=== PATIENT | female | born 1950 | race Caucasian/White ===

== ENCOUNTER 2019-11-04 12:02 | Inpatient (IN) | payer OTHER, SELFPAY ==
[2019-10-23 14:45] VITALS: BMI 23.6
[2019-11-04] VITALS (15 sets, daily range): BP systolic 106–144; BP diastolic 50–73; PULSE 64–80; RESP 10–19; TEMP 36.3–37.2; O2SAT 93–99; BMI 23.6
--- NOTE | 2019-11-04 | DI.RAD.S_ITS ---
PROCEDURE: XR CERVICAL SPINE 2V OR 3V INDICATIONS: C4-5. C5-6, C6-7 ACDF TECHNIQUE: 2 view(s) of the cervical spine were acquired. COMPARISON: None. FINDINGS: 2 intraoperative fluoroscopy images demonstrate discectomy and anterior fusion at C4-C5, C5-C6 and C6-C7. IMPRESSION: Discectomy and anterior fusion at C4-C5, C5-C6 and C6-C7. Dictated by: Abril Lemons M.D. on 11/04/2019 at 17:03 Approved by: Abril Lemons M.D. on 11/04/2019 at 17:04
[2019-11-04] MEDS: ALBUTEROL 2.5 MG/3 ML NEB (ADULT) INH (12:55)
[2019-11-04] MEDS: LACTATED RINGERS 1,000 ML 42 ML IV ×2 (13:20→15:53)
--- NOTE | 2019-11-04 13:33 | PM.PREOP ---
Pre-operative Note Interval Note History & Physical reviewed/Exam performed by Physician: Yes Changes to H&P: No
[2019-11-04 13:46] LABS: INR 1.2 (0.9-1.3)
[2019-11-04] MEDS: CEFAZOLIN 2 GM/100 ML FROZ.PIGGY IV (14:05)
--- NOTE | 2019-11-04 14:36 | SUR.OPER ---
Supine on padded OR bed, head on gel donut, towel roll between shoulders vertically. Arms padded and papoosed with draw sheet, and secured with towel clips, legs uncrossed, pillow under knee, safety belt at thighs, tape over blanket over lower legs. Pt. taped from bilateral shoulders down to foot of bed.
[2019-11-04] MEDS: ACETAMINOPHEN IV 1,000 MG/100 ML VIAL 400 MG IV (15:20)
[2019-11-04] MEDS: BUPIVACAINE 0.25% W/ EPI (PF) 10 ML VIAL 20 ML INJ (16:43)
--- NOTE | 2019-11-04 16:56 | PM.OP.1 ---
Procedure & Clinicians Procedure: 1. C4-5 C5-6 C6-7 anterior cervical diskectomy and fusion 2. C4-5 C5-6 C6-7 anterior interbody cage placement 3. C4-5 C5-6 C6-7 anterior instrumentation with plate and screw placement in C4-C5-C6 and C7 vertebrae 4. Utilization of microsurgical technique and operating microscope Same procedure as scheduled: Yes Indications: Patient has been having chronic neck pain and worsening cervical radiculopathy. Patient failed multiple conservative management with worsening pain weakness and numbness in her upper extremity. Patient has been having difficulty performing activity of daily living. After discussing risks benefits of treatment options, patient elected proceed with surgery. Surgeon: Manda Herrera Quality Assurance Monitor Final: Clark Clark Click Yes if Unassisted: No Anesthesia Type: General Operative Notes Closure Type: primary Specimen(s): none sent Prosthetic devices, grafts, tissues, transplants, or devices: Globus extend plate, PEEK cages Applied: catheter Estimated Blood Loss (mL): 50 Blood products transfused: none Procedure in detail: Patient was seen in the preoperative area. Risks and benefits of the surgery was discussed with the patient. Operative consent was obtained and placed in the chart. Patient was then taken to the operative room. Prophylactic antibiotic was given less than 0.5 hr prior to skin incision. General anesthesia was administered. Patient was placed into a supine position on her radiolucent table. Bilateral shoulders were taped down to allow proper C-arm imaging. Anterior cervical area was prepped and draped in a sterile fashion. Time-out was performed at this time. Using lateral C-arm imaging, the level between C4 and C7 was identified and marked on patient's neck. A oblique incision from midline towards medial border of sternocleidomastoid muscle was made. The platysma muscle was incised in line with skin incision. Metzenbaum scissor was used to develop the plane between the medial border of sternocleidomastoid d and the strap muscles medially. The carotid sheath and its contents were identified and protected behind the hand-held retractor during the entire case. The plane between the carotid sheath and strap muscles was developed with Metzenbaum scissors. Dissection was made down to the level of the anterior cervical fascia. Longus colli muscle was incised on the anterior aspect of vertebral bodies bilaterally from C4-C7. Spinal needle was placed into the C4-5 disc space and confirmed with lateral C-arm imaging. Using microsurgical technique and operative microscope, anterior cervical diskectomy was performed at C4-5 C5-6 and C6-7 level. This was done by removing the disc material, removing the anterior and posterior osteophytes posterior longitudinal ligaments along with performing bilateral foraminotomies at all 3 levels. Patient was found to have severe central and foraminal stenosis at all 3 levels. Patient's stenosis was fully decompressed after decompression was completed. After the diskectomy was completed, 3 anterior interbody cages were obtained. The cages were packed with globus via cell bone grafting material. One cage each along with the bone grafting material was then packed into the interbody spaces from C4-C7 with one cage into each interbody level. After the cages were placed, the anterior cervical plate was stabilized to the C4-C7 vertebrae using 2 screws at each each level. Total 8 screws were placed. After confirming placement of the hardware with AP and lateral C-arm imaging, the screws were locked into the plate using the locking mechanism and torque limiting screwdriver. After the hardware was placed and confirmed with AP and lateral C-arm imaging, the wound was irrigated with sterile normal saline. The platysma muscle and the subcutaneous tissue was closed with 2-0 Vicryl. The skin was closed with 4-0 Monocryl and Steri-Strips. Patient tolerated the procedure well. Patient was transferred recovery room in stable condition. There were no complications. Complications: none Post-operative Condition: stable Disposition: PACU Plan for aftercare: Admit to inpatient hospital
--- NOTE | 2019-11-04 17:14 | SUR.PHASEI ---
upper denture returned to patient in PACU/.
[2019-11-04] MEDS: LORazepam 0.5 MG TABLET PO (18:44)
[2019-11-04] MEDS: NICOTINE 14 PATCH 14 MG TOP (19:42)
[2019-11-04] MEDS: SODIUM CHLORIDE 0.9% 1,000 ML 100 ML IV (19:42)
--- NOTE | 2019-11-04 21:10 | PC.NURSE ---
Patient currently resting in bed with eyes closed. Patient brought up from PACU on 2L O2, titrated off O2, maintained O2 at 96%. Patient denies shortness of breath, chest pain, dizziness, numbness or tingling in the extremities. Pulses are equal but irregular. Patient placed on tele at 1999. Upon Patient wants to stretch stating I'll start stretching my neck if I don't get something to relax me. Administered PRN Lorazepam.
[2019-11-04] MEDS: ATORVASTATIN 20 MG TABLET 40 MG PO (21:18)
[2019-11-04] MEDS: FLUTICASONE 110MCG HFA 120 PUFF INH (21:18)
[2019-11-04] MEDS: ROPINIROLE 1 MG TABLET PO (21:18)
[2019-11-04] MEDS: OXYCODONE IR 5 MG TABLET PO (21:24)
[2019-11-05 00:10] VITALS: BP 107/63; PULSE 65; RESP 18; TEMP 36.4; O2SAT 96
[2019-11-05] MEDS: OXYCODONE IR 5 MG TABLET PO ×4 (01:57→11:17)
[2019-11-05 04:40] VITALS: BP 121/56; PULSE 78; RESP 18; TEMP 36.9; O2SAT 96
[2019-11-05 08:00] VITALS: BP 127/62; PULSE 72; RESP 20; TEMP 37.1; O2SAT 98
--- NOTE | 2019-11-05 08:21 | P.DS_ITS ---
History of Present Illness History of Present Illness Date Patient Seen: 11/05/19 Time Patient Seen: 08:21 Chief complaint: [id number] Narrative: Pain mild. Denies fever or chills. No difficulty swallowing. Had pudding and crackers last night. is home to assist her. Discharge Providers Provider Date of admission: 11/04/19 12:02 Discharge Date: 11/05/19 Primary care physician: Etelvina Pinedo MD Consults: 11/04/19 15:10 Consult to Respiratory Therapy Evaluate & Treat Comment: FRANCISCO J, not CPAP compliant, post ACDF Physician Instructions: Evaluate and treat 11/04/19 19:27 Consult to Physical Therapy Evaluate & Treat Comment: Physician Instructions: Evaluate and Treat Discharge provider: Apolinar Chavarria PA-C Summary Hospital Course Discharge Diagnosis: cervical radiculopathy. Hospital Course: Procedure: 1. C4-5 C5-6 C6-7 anterior cervical diskectomy and fusion 2. C4-5 C5-6 C6-7 anterior interbody cage placement 3. C4-5 C5-6 C6-7 anterior instrumentation with plate and screw placement in C4-C5-C6 and C7 vertebrae 4. Utilization of microsurgical technique and operating microscope Same procedure as scheduled: Yes Indications: Patient has been having chronic neck pain and worsening cervical radiculopathy. Patient failed multiple conservative management with worsening pain weakness and numbness in her upper extremity. Patient has been having difficulty performing activity of daily living. After discussing risks benefits of treatment options, patient elected proceed with surgery. Surgeon: Manda Herrera Broth Mixer: Clark Clark Click Yes if Unassisted: No Anesthesia Type: General Operative Notes Closure Type: primary Specimen(s): none sent Prosthetic devices, grafts, tissues, transplants, or devices: Globus extend plate, PEEK cages Applied: catheter Estimated Blood Loss (mL): 50 Blood products transfused: none Patient admitted to the hospital for the above-mentioned procedure. Patient consented to the same. Patient taken to the operating room yesterday. Patient back in her room recovering well and is in stable condition. Patient discontinued warfarin 5 days prior to surgery. She will start aspirin daily for the next 2 days and then restart warfarin on postop day 3. She will be discharged home today in stable condition. Status at Discharge Cognitive/behavioral status at discharge: at baseline, oriented Overall status at discharge: patient is progressing back to baseline Time Spent with Patient Time spent: Less than 30 minutes Exam Vital Signs (past 8 hours): - 11/05/19 04:40 Temperature 98.5 F Pulse Rate 78 Respiratory Rate 18 Blood Pressure 121/56 L Pulse Oximetry 96 Oxygen Delivery Method Nasal Cannula Oxygen Flow Rate 0 Narrative Exam Narrative: 69-year-old female resting comfortably in bed in no apparent distress. Soft collar on. Dressing clean, dry and intact. 5/5 strength bilateral upper extremities. Sensation grossly intact to light touch bilateral upper extremities. Objective Labs Labs: Laboratory Results - last 24 hr 11/04/19 13:25 PT 14.0 H INR 1.2 Discharge Plan Discharge Plan Patient Disposition: Home Discharge orders & Medications Prescriptions: New oxycodone 5 mg Tablet 5 mg PO Q3HR PRN (Reason: Pain, Moderate (4-6)) Qty: 40 RF: 0 Continued atorvastatin 40 mg Tablet 40 mg PO BEDTIME RF: 0 anastrozole [Arimidex] 1 mg Tablet 1 mg PO DAILY RF: 0 ropinirole 1 mg Tablet 1 mg PO BEDTIME RF: 0 amiodarone 200 mg Tablet 200 mg PO RF: 0 lorazepam 0.5 mg Tablet 0.5 mg PO BID PRN (Reason: Panic attacks) RF: 0 losartan 25 mg Tablet 25 mg PO BID RF: 0 metoprolol succinate 25 mg Tablet Extended Release 24 Hr 50 mg PO DAILY RF: 0 albuterol sulfate [ProAir HFA] 90 mcg/actuation Hfa Aerosol Inhaler 2 puff INHALATION Q4-6H PRN (Reason: Wheezing) RF: 0 fluticasone propionate [Flonase Allergy Relief] 50 mcg/actuation [place],Suspension 2 spray INTRANASAL DAILY RF: 0 Flovent HFA 110 mcg/actuation Hfa Aerosol Inhaler 1 puff INHALATION BID RF: 0 paroxetine mesylate 40 mg Tablet 30 mg PO DAILY RF: 0 warfarin 1 mg Tablet 1.5 - 2 mg PO DIRECTED Qty: 0 RF: 0 Follow up/Referrals: Manda Herrera MD [Physician] - (2 wk) Etelvina Pinedo MD [Primary Care Provider] - Diet/Activity/Treatments Activity: limit bending, lifting, twisting Other treatments: soft collar for comfort 81 mg aspirin today and tomorrow. Restart warfarin postop day 3 (11/07/19) Skin/Wound/Dressing Care Report to your healthcare provider any signs of infection, such as:: chills, fever, increased pain, unusual drainage and unusual redness Dressing: keep clean and dry Discharge Data Primary Care Provider: Etelvina Pinedo
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
[2019-11-05] MEDS: LOSARTAN 25 MG TABLET PO (09:25)
[2019-11-05] MEDS: ANASTROZOLE 1 MG TABLET PO (09:25)
[2019-11-05] MEDS: FLUTICASONE 110MCG HFA 120 PUFF INH (09:25)
[2019-11-05] MEDS: PARoxetine 10 MG TABLET 30 MG PO (09:26)
[2019-11-05] MEDS: ASPIRIN EC 81 MG TABLET PO (09:29)
[2019-11-05] MEDS: NICOTINE 14 PATCH 14 MG TOP (09:30)
[2019-11-05] MEDS: METOPROLOL ER 25 MG TABLET 50 MG PO (09:30)
--- NOTE | 2019-11-05 10:25 | ST.IPSCREEN ---
Pt seen for f/u after ACDF surgery yesterday. Pt up in her bed with no c/o difficulty swallowing or vocal changes. Observed pt drinking coffee without overt s/sx aspiration. Instructed pt that if she notices changes in her voice or starts to cough more with eating/ drinking to notify MD. Pt indicated she understood.
--- NOTE | 2019-11-05 11:02 | PC.NURSE ---
pt preparing for d/c to home- has worked with PT and reviewed lifting and twisting restrictions and oxycodone effective for pain control- answered all questions to her satisfaction - awaiting her ride at this time- will medicate for pain just prior to dc
[2019-11-05 11:04] VITALS: PULSE 80
[2019-11-05] MEDS: LORazepam 0.5 MG TABLET PO (11:17)
--- NOTE | 2019-11-05 12:31 | CM.DANOTE ---
DCP Brief Assessment Note Patient is a 69 year old female who was admitted on 11/04/19 for Spinal Surgery. Pt has [facility] for insurance and her PCP is Dr Etelvina Pinedo. EMR was reviewed. Per Ortho PA, pt medically stable to d/c home today. Per PT, pt tolerated ambulation well and recommending safe d/c home with spouse assist and outpt PT. Pt resides at home with spouse in [place] at baseline and is Independent with ADL's. Per ST, no swallow or aspiration needs at this time. Plan: Patient discharged home via spouse POV this morning before SW could meet bedside and no SW needs at this time. MICHELLE Frye
== END 2019-11-05 11:50 | disposition home or self-care (01) | DRG 472 ==
PROVIDERS: Physician Assistant Medical; Admitting Provider Orthopaedic Surgery Orthopaedic Surgery of the Spine; PCP Internal Medicine; Visit Provider Orthopaedic Surgery Orthopaedic Surgery of the Spine
PROC: 0RG20A0 Fusion of 2 or more Cervical Vertebral Joints with Interbody Fusion Device, Anterior Approach, Anterior Column, Open Approach (ICD-10-PCS; principal; 2019-11-04 13:45)
DX: M48.02 Spinal stenosis, cervical region (principal); M47.12 Other spondylosis with myelopathy, cervical region; I50.32 Chronic diastolic (congestive) heart failure; I11.0 Hypertensive heart disease with heart failure; G47.33 Obstructive sleep apnea (adult) (pediatric); J44.9 Chronic obstructive pulmonary disease, unspecified; I48.0 Paroxysmal atrial fibrillation; F17.210 Nicotine dependence, cigarettes, uncomplicated; Z79.01 Long term (current) use of anticoagulants
CPT/HCPCS: 72040; 76000; 85610; 94640; 94770; 97161; C1776; J0131; J0690; J1100; J1170; J2250; J2405; J2704; J3010; J7613